=== PATIENT | female | born 1970 | race Caucasian/White ===

== ENCOUNTER 2019-12-28 18:31 | Observation (INO) ==
[2019-12-28 18:58] LABS: Bilirubin,Urine Negative (Negative); Blood,Urine Small (Negative); Clarity,Urine Clear (Clear); Glucose,Urine (UA) Normal (Normal); Ketones,Urine 15 mg/dL (Negative); Leukocyte Esterase,Urine Negative (Negative); Nitrite,Urine Positive (Negative); PH,Urine 5.5 pH Units (5.0-8.0); Protein,Urine Trace mg/dL (Neg-Trace); Specific Gravity,Urine 1.025 (1.010-1.025); Urobilinogen,Urine Normal (Normal)
[2019-12-28 19:00] LABS: Bacteria,Urine Moderate per hpf (None-Few); Hyaline Casts,Urine None Seen per lpf (None-Few); RBC,Urine 15-30 per hpf (0-3); Squamous Epithelial Cell,Urine Many per lpf (None-Few)
[2019-12-28] MEDS ORDERED: 0.9 % Sodium Chloride 1,000 ML IVC ONE (19:09)
[2019-12-28] MEDS ORDERED: Ondansetron 4 MG/2 ML VIAL IVP STA (19:11)
[2019-12-28 19:12] LABS: Color,Urine Dark-Yellow (Yellow)
[2019-12-28 19:26] LABS: Basophils % 0.3 %; Eosinophils # 0.1 K/mcL (0.0-0.6); Eosinophils % 0.8 %; Hematocrit 40.7 % (35.3-44.9); Hemoglobin 13.7 g/dL (11.5-15.4); Immature Granulocytes % 0.5 % (0-4); Lymphocytes # 1.5 K/mcL (0.6-4.6); Lymphocytes % 11.5 %; Mean Corpuscular HGB Conc 33.7 g/dL (31.6-35.5); Mean Corpuscular Hemoglobin 30.6 pg (28.0-33.3); Mean Corpuscular Volume 91.1 fL (83.0-100.0); Mean Platelet Volume 10.8 fL (9.4-12.4); Monocytes % 7.8 %; Neutrophils # 10.3 K/mcL (1.6-8.9); Platelet Count 209 K/mcL (140-400); Red Blood Count 4.47 M/mcL (3.82-4.97); Red Cell Distribution Width 12.8 % (11.5-14.5); Segmented Neutrophils % 79.1 %
[2019-12-28 19:31] LABS: Alanine Aminotransferase 36 Units/L (7-52); Albumin 4.4 g/dL (3.5-5.7); Albumin/Globulin Ratio 1.7 (1.1-2.2); Alkaline Phosphatase 121 Units/L (34-104); Aspartate Amino Transferase 22 Units/L (13-39); BUN/Creatinine Ratio 14 (6-26); Bilirubin,Direct 0.1 mg/dL (0.0-0.2); Bilirubin,Indirect 0.5 mg/dL (0.0-1.0); Bilirubin,Total 0.6 mg/dL (0.3-1.0); Blood Urea Nitrogen 13 mg/dL (6-20); Calcium 12.1 mg/dL (8.6-10.3); Carbon Dioxide 25 mEq/L (23-29); Chloride 105 mEq/L (98-107); Globulin 2.6 g/dL (2.4-3.5); Glucose 100 mg/dL (70-105); Lipase 32 Units/L (11-82); Osmolality,Calculated 282 (280-300); Potassium 3.8 mEq/L (3.5-5.1); Sodium 136 mEq/L (136-145); eGFR For African Americans > 60 (> 60); eGFR For Non-African Americans > 60 (> 60)
[2019-12-28] MEDS ORDERED: Ondansetron 4 MG/2 ML VIAL IVP PRN (20:18)
[2019-12-28] MEDS ORDERED: Ketorolac 15 MG/ML VIAL IVP PRN (20:18)
[2019-12-28] MEDS ORDERED: Naloxone 0.4 MG/ML INJ IVP PRN ×2 (20:18→23:42)
[2019-12-28] MEDS ORDERED: Ketorolac 30 MG/ML VIAL IVP ONE (22:15)
[2019-12-28] MEDS: cefTRIAXone 1,000 MG in Water for inj. (sterile) 10 ML IVP SCH (23:13)
[2019-12-28] MEDS: 0.9 % Sodium Chloride 1,000 ML IVC SCH (23:13)
[2019-12-29] MEDS ORDERED: *HR* HYDROcodone/Acet 5/325 mg TABLET PO PRN ×2 (00:24→15:18)
[2019-12-29] MEDS ORDERED: *HR* OxyCODONE Immed Rel 5 MG TABLET PO PRN ×4 (00:24→15:18)
[2019-12-29] MEDS ORDERED: Acetaminophen 325 MG TABLET PO PRN ×2 (00:24→15:18)
[2019-12-29] MEDS ORDERED: Ketorolac 30 MG/ML VIAL IVP PRN ×2 (00:25→15:18)
[2019-12-29 05:02] LABS: Basophils % 0.1 %; Hematocrit 40.8 % (35.3-44.9); Hemoglobin 13.5 g/dL (11.5-15.4); Immature Granulocytes % 0.3 % (0-4); Lymphocytes # 0.9 K/mcL (0.6-4.6); Lymphocytes % 9.4 %; Mean Corpuscular HGB Conc 33.1 g/dL (31.6-35.5); Mean Corpuscular Volume 90.7 fL (83.0-100.0); Mean Platelet Volume 11.1 fL (9.4-12.4); Monocytes # 0.8 K/mcL (0.0-1.3); Monocytes % 7.7 %; Neutrophils # 8.3 K/mcL (1.6-8.9); Platelet Count 207 K/mcL (140-400); Segmented Neutrophils % 82.5 %
[2019-12-29 05:04] LABS: VBG Ionized Calcium 1.48 mmol/L (1.15-1.35)
[2019-12-29 05:22] LABS: BUN/Creatinine Ratio 13 (6-26); Blood Urea Nitrogen 13 mg/dL (6-20); Carbon Dioxide 23 mEq/L (23-29); Chloride 108 mEq/L (98-107); Glucose 137 mg/dL (70-105); Osmolality,Calculated 286 (280-300); Sodium 137 mEq/L (136-145); eGFR For African Americans > 60 (> 60); eGFR For Non-African Americans 58 (> 60)
[2019-12-29] MEDS ORDERED: *HR* Heparin 5,000 UNIT/ML VIAL SQ SCH ×2 (06:00→18:00)
[2019-12-29] MEDS: 0.9 % Sodium Chloride 1,000 ML IVC SCH (06:02)
[2019-12-29] MEDS ORDERED: Loratadine 10 MG TABLET PO SCH (09:00)
[2019-12-29] MEDS ORDERED: Aspirin 81 MG TAB.CHEW PO SCH (09:00)
[2019-12-29] MEDS ORDERED: *HR* Labetalol 20 MG/4 ML SYRINGE IVP PRN ×2 (09:17→15:18)
[2019-12-29] MEDS ORDERED: *HR* HYDROmorphone (PF) 1 MG/ML SYRINGE IVP PRN ×2 (09:17→15:18)
[2019-12-29] MEDS ORDERED: Pregabalin 75 MG CAPSULE PO ONE (09:17)
[2019-12-29] MEDS ORDERED: Scopolamine Patch 1.5 MG PATCH.TD72 TD PRN ×2 (09:17→15:18)
[2019-12-29] MEDS ORDERED: *HR* Promethazine 25 MG/ML VIAL IVP PRN ×2 (09:17→15:18)
[2019-12-29] MEDS ORDERED: *HR* HYDROmorphone 2 MG TABLET PO PRN ×2 (09:17→15:18)
[2019-12-29] MEDS: cefTRIAXone 1,000 MG in Water for inj. (sterile) 10 ML IVP SCH (09:45)
[2019-12-29] MEDS ORDERED: Budesonide/Formoterol 160/4.5 1 PUFF INH IH SCH ×2 (10:00→22:00)
[2019-12-29] MEDS ORDERED: *HR* FentaNYL (PF) 100 MCG/2 ML VIAL ONE (13:48)
[2019-12-29] MEDS ORDERED: *HR* Propofol 200 MG/20 ML VIAL IVP ONE (13:48)
[2019-12-29] MEDS ORDERED: *HR* Succinylcholine 200 MG/10 ML VIAL IVP ONE (13:49)
[2019-12-29] MEDS ORDERED: Ondansetron 4 MG/2 ML VIAL ONE (13:49)
[2019-12-29] MEDS ORDERED: Lidocaine -MPF 2% 2 ML VIAL ONE (13:49)
[2019-12-29] MEDS ORDERED: Dexamethasone 4 MG/ML VIAL ONE (13:49)
[2019-12-29] MEDS ORDERED: Acetaminophen IV 1,000 MG/100 ML INFUS..BTL ONE (13:52)
[2019-12-29] MEDS ORDERED: Famotidine 20 MG/2 ML VIAL ONE (13:53)
[2019-12-29] MEDS ORDERED: Acetaminophen IV 1,000 MG/100 ML INFUS..BTL IVPB ONE (14:42)
[2019-12-29] MEDS ORDERED: Famotidine 20 MG/2 ML VIAL IVP ONE (14:43)
[2019-12-29 15:09] VITALS: BP 126/75
[2019-12-29] MEDS ORDERED: Naloxone 0.4 MG/ML INJ IVP PRN ×2 (15:18)
[2019-12-29] MEDS ORDERED: Ondansetron 4 MG/2 ML VIAL IVP PRN (15:18)
[2019-12-30] MEDS ORDERED: Loratadine 10 MG TABLET PO SCH (09:00)
[2019-12-30] MEDS ORDERED: cefTRIAXone 1,000 MG in Water for inj. (sterile) 10 ML IVP SCH (09:00)
[2019-12-30] MEDS ORDERED: Aspirin 81 MG TAB.CHEW PO SCH (09:00)
== END 2019-12-29 16:53 | disposition home or self-care (01) ==
LOC: 3ANU 18:31 → EMEROOARM 18:31 → 3ANU 21:36
PROVIDERS: ADMIT Student in an Organized Health Care Education/Training Program; ATTEND Student in an Organized Health Care Education/Training Program